=== PATIENT | female | born 2000 | race Caucasian/White ===

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

== ENCOUNTER 2019-09-17 09:27 | Emergency (ER) | payer OTHER ==
[2019-09-17] MEDS ORDERED: Ondansetron INJ* 2 MG/ML VIAL IV ONE ×2 (10:00→13:10)
[2019-09-17] MEDS ORDERED: NS 0.9% 1000 ML** 1,000 ML IV ONE (10:00)
[2019-09-17 10:25] LABS: ABS Eosinophils 0.1 10^3/ul (0-0.6); ABS Monocytes 0.4 10^3/ul (0-0.8); ABS Neutrophils 2.7 10^3/ul (1.5-7.7); Eosinophil % 2.2 %; Hematocrit 38 % (35-47); Lymphocyte % 23.9 %; Mean Corpuscular HGB Conc 34 g/dL (31-36); Mean Corpuscular Hemoglobin 28 pg (27-31); Mean Corpuscular Volume 82 fL (80-97); Mean Platelet Volume 8.3 fL (7.4-10.4); Nucleated Red Blood Cells % 0.1; Platelet Count 186 10^3/uL (150-450); Red Blood Count 4.67 10^6 /uL (3.70-4.87); Red Cell Distribution Width 14 % (10-15); White Blood Count 4.2 10^3/uL (3.5-10.8)
[2019-09-17 10:35] LABS: Activated Partial Thrombo Time 30.2 seconds (26.0-38.0); INR 1.01 (0.82-1.09)
[2019-09-17 10:57] LABS: Albumin 3.9 g/dL (3.2-5.2); Albumin/Globulin Ratio 1.4 (1-3); BUN/Creatinine Ratio 11.7 (8-20); Calcium 9.3 mg/dL (8.6-10.3); EGFR African American 92.8 (>60); EGFR Non-African American 76.7 (>60); Globulin 2.7 g/dL (2-4); Potassium 3.9 mmol/L (3.5-5.0); Total Bilirubin 0.5 mg/dL (0.2-1.0); Total Protein 6.6 g/dL (6.4-8.9)
[2019-09-17] MEDS ORDERED: Iohexol 300* (CONTRAST) 10 ML SDV IV ONE (12:00)
[2019-09-17] MEDS ORDERED: Ketorolac INJ* 30 MG/ML 1 ML VIAL IV ONE (13:10)
--- NOTE | 2019-09-17 13:35 | ED ---
Abdominal Pain/Female - HPI Summary HPI Summary: This patient is a 18-year-old female with no significant past medical history of presents to the ED with rectal bleeding 2 days. Patient is endorsing BRBPR x 2 days starting with a BM and 3 episodes (most previous one was last evening) of only BRB with no stool. Endorses mild abd cramping and nausea as well. Unsure if she ate anything abnormal. Denies vomiting. Denies any dizziness, HAWK, confusion, lightheadedness, UTI sxs or back pain. Denies any other sxs per patient. Takes no medications and has allergy to amoxicillin. Denies hx of IBD, IBS or other colitis. Denies hx of any GI upset/bleeding. No cough, congestion, fevers, sweats or chills. Denies known sick contacts or travel. Pt evaluated for GI bleed. Endorses BRBPR x 2 days (4 episodes total), last one was last evening. Denies having any BM this am. Endorses abd cramping. Pt appears well, non-diaphoretic and non-toxic in appearing. Lungs CTA, RRR. Diffuse tenderness on exam without guarding, distention or pinpoint tenderness. Negative CVA tenderness. BS throughout. Pt was given fluids and zofran with some improvement. Declined stool occult, AUSTEN. Denies any pain in rectum, hx of fissures or hemorrhoids. No clots per patient. Ct abd/pelvis obtained: Fatty infiltration of the liver. No evidence of colitis/diverticulitis or other inflammatory change. While pt was in the ED, there was no recurrent bleed or BM. Pt will f/u with GI. Discussed with the patient at length to return to the ED if symptoms persist or worsen. Will also return if she develops fever. She is stable and OK for DC at this time. - History of Current Complaint Chief Complaint: EDGIBleed Stated Complaint: BLOOD IN STOOL Time Seen by Provider: 09/17/19 09:35 Hx Obtained From: Patient Hx Last Menstrual Period: 06/06/17 ?: No Onset/Duration: Sudden Onset Timing: Days Severity Initially: Mild Severity Currently: Mild Pain Intensity: 4 Pain Scale Used: 0-10 Numeric Location: Diffuse, Other - bilateral lower quadrants Radiates: No Character: Cramping Aggravating Factor(s): Nothing Alleviating Factor(s): Nothing Associated Signs and Symptoms: Positive: Blood in Stool, Nausea. Negative: Diaphoresis, Fever, Cough, Chest Pain, Back Pain, Constipation, Urinary Symptoms , Decreased Appetite, Vaginal Bleeding, Vaginal Discharge, Vomiting, Diarrhea - Risk Factors Ectopic Risk Factor: Negative Ovarian Torsion Risk Factor: Negative Allergies/Adverse Reactions: Allergies Allergy/AdvReac Type Severity Reaction Status Date / Time amoxicillin Allergy Intermediate Hives Verified 09/17/19 09:33 Home Medications: Home Medications Norgestimate-Ethinyl Estradiol [Unique 0.25-0.035 mg Tablet] 1 tab PO DAILY [History Confirmed 09/17/19] Ondansetron ODT TAB* [Zofran 4 MG Odt TAB*] 4 mg PO Q6H PRN #12 tab.odt MDD 4 [Rx] PMH/Surg Hx/FS Hx/Imm Hx Previously Healthy: Yes Endocrine/Hematology History: Denies: Hx Diabetes Cardiovascular History: Denies: Hx Coronary Artery Disease, Hx Hypertension, Hx Pacemaker/ICD Musculoskeletal History: Denies: Hx Scoliosis, Other Musculoskeletal History Sensory History: Denies: Hx Cataracts, Hx Contacts or Glasses, Hx Hearing Aid Opthamlomology History: Denies: Hx Cataracts, Hx Contacts or Glasses Neurological History: Denies: Hx Headaches, Other Neuro Impairments/Disorders Psychiatric History: Denies: Hx Panic Disorder - Immunization History Hx Pertussis Vaccination: No Immunizations Up to Date: Yes Infectious Disease History: No Infectious Disease History: Denies: Traveled Outside the [place] in Last 30 Days - Family History Known Family History: Negative: Cardiac Disease, Hypertension, Diabetes - Social History Occupation: Unemployed Lives: With Family Alcohol Use: None Hx Substance Use: No Substance Use Type: Reports: None Hx Tobacco Use: No Smoking Status (MU): Never Smoked Tobacco Have You Smoked in the Last Year: No Review of Systems Negative: Fever, Chills, Fatigue, Skin Diaphoresis Negative: Dental Pain, Sore Throat Negative: Palpitations, Chest Pain Negative: Shortness Of Breath, Cough Positive: Abdominal Pain, Nausea. Negative: Vomiting, Diarrhea Genitourinary: Negative Positive: no symptoms reported, see HPI Negative: Arthralgia, Myalgia All Other Systems Reviewed And Are Negative: Yes Physical Exam Triage Information Reviewed: Yes Vital Signs On Initial Exam: Initial Vitals Temp Pulse Resp BP Pulse Ox 98.3 F 109 16 138/109 98 09/17/19 09:30 09/17/19 09:30 09/17/19 09:30 09/17/19 09:30 09/17/19 09:30 Vital Signs Reviewed: Yes Appearance: Positive: Well-Appearing, Well-Nourished Skin: Positive: Warm, Skin Color Reflects Adequate Perfusion Head/Face: Positive: Normal Head/Face Inspection Eyes: Positive: EOMI, MACEY, Conjunctiva Clear Neck: Positive: Supple, No Lymphadenopathy Respiratory/Lung Sounds: Positive: Clear to Auscultation, Breath Sounds Present Cardiovascular: Positive: RRR, Pulses are Symmetrical in both Upper and Lower Extremities. Negative: Tachycardia, Leg Edema Left, Leg Edema Right Musculoskeletal: Positive: Normal, Strength/ROM Intact Neurological: Positive: Facial Symmetry Psychiatric: Positive: Normal, Affect/Mood Appropriate AVPU Assessment: Alert Procedures - Sedation Patient Received Moderate/Deep Sedation with Procedure: No Diagnostics - Vital Signs Vital Signs Temp Pulse Resp BP Pulse Ox 09/17/19 12:05 54 122/65 99 09/17/19 12:00 59 99 09/17/19 11:40 49 106/62 100 09/17/19 11:05 68 117/64 100 09/17/19 11:04 74 99 09/17/19 10:35 82 127/82 97 09/17/19 10:06 79 99 09/17/19 10:05 82 116/86 100 09/17/19 09:30 98.3 F 109 16 138/109 98 - Laboratory Lab Results: Lab Results 09/17/19 09/17/19 09/17/19 Range/Units 10:15 10:15 10:15 WBC 4.2 (3.5-10.8) 10^3/uL RBC 4.67 (3.70-4.87) 10^6 /uL Hgb 13.0 (12.0-16.0) g/dL Hct 38 (35-47) % MCV 82 (80-97) fL MCH 28 (27-31) pg MCHC 34 (31-36) g/dL RDW 14 (10-15) % Plt Count 186 (150-450) 10^3/uL MPV 8.3 (7.4-10.4) fL Neut % (Auto) 63.9 % Lymph % (Auto) 23.9 % [place] % (Auto) 9.3 % Eos % (Auto) 2.2 % Baso % (Auto) 0.7 % Absolute Neuts (auto) 2.7 (1.5-7.7) 10^3/ul Absolute Lymphs (auto) 1.0 (1.0-4.8) 10^3/ul Absolute Monos (auto) 0.4 (0-0.8) 10^3/ul Absolute Eos (auto) 0.1 (0-0.6) 10^3/ul Absolute Basos (auto) 0.0 (0-0.2) 10^3/ul Absolute Nucleated RBC 0.0 10^3/ul Nucleated RBC % 0.1 INR (Anticoag Therapy) 1.01 (0.82-1.09) APTT 30.2 (26.0-38.0) seconds Sodium 138 (135-145) mmol/L Potassium 3.9 (3.5-5.0) mmol/L Chloride 108 (101-111) mmol/L Carbon Dioxide 25 (22-32) mmol/L Anion Gap 5 (2-11) mmol/L BUN 11 (6-24) mg/dL Creatinine 0.94 (0.51-0.95) mg/dL Est GFR ( Amer) 92.8 (>60) Est GFR (Non-Af Amer) 76.7 (>60) BUN/Creatinine Ratio 11.7 (8-20) Glucose 87 (70-100) mg/dL Calcium 9.3 (8.6-10.3) mg/dL Total Bilirubin 0.50 (0.2-1.0) mg/dL AST 16 (13-39) U/L ALT 12 (7-52) U/L Alkaline Phosphatase 46 (34-104) U/L Total Protein 6.6 (6.4-8.9) g/dL Albumin 3.9 (3.2-5.2) g/dL Globulin 2.7 (2-4) g/dL Albumin/Globulin Ratio 1.4 (1-3) Result Diagrams: 09/17/19 10:15 09/17/19 10:15 Lab Statement: Any lab studies that have been ordered have been reviewed, and results considered in the medical decision making process. Abdominal Pain Fem Course/Dx - Course Course Of Treatment: Pt evaluated for GI bleed. Endorses BRBPR x 2 days (4 episodes total), last one was last evening. Denies having any BM this am. Endorses abd cramping. Pt appears well, non-diaphoretic and non-toxic in appearing. Lungs CTA, RRR. Diffuse tenderness on exam without guarding, distention or pinpoint tenderness. Negative CVA tenderness. BS throughout. Pt was given fluids and zofran with some improvement. Declined stool occult, AUSTEN. Denies any pain in rectum, hx of fissures or hemorrhoids. No clots per patient. Ct abd/pelvis obtained: Fatty infiltration of the liver. No evidence of colitis/diverticulitis or other inflammatory change. While pt was in the ED, there was no recurrent bleed or BM. Pt will f/u with GI. Discussed with the patient at length to return to the ED if symptoms persist or worsen. Will also return if she develops fever. She is stable and OK for DC at this time. - Diagnoses Differential Diagnosis: Positive: Other - colitis, IBD, IBS Provider Diagnoses: Hematochezia Discharge ED - Sign-Out/Discharge Documenting (check all that apply): Patient Departure - Discharge Plan Condition: Stable Disposition: HOME Prescriptions: Ondansetron ODT TAB* [Zofran 4 MG Odt TAB*] 4 mg PO Q6H PRN #12 tab.odt MDD 4 PRN Reason: Nausea Patient Education Materials: Rectal Bleeding (ED) Referrals: Pina Culver MD [Medical Doctor] - Belkis Goetz MD [Primary Care Provider] - Additional Instructions: Please follow up with GI if symptoms persist If you have any worsening symptoms, return to the ED immediately If you develop fevers, return to the ED Take tylenol 650mg for any discomfort Zofran as needed for nausea - Billing Disposition and Condition Condition: STABLE Disposition: Home
[2019-09-17 13:58] VITALS: BP 110/57
== END 2019-09-17 13:57 | disposition home or self-care (01) ==
LOC: ED 09:27
DX: K92.1 Melena (principal); R11.0 Nausea; R10.9 Unspecified abdominal pain; Z88.0 Allergy status to penicillin; Z79.3 Long term (current) use of hormonal contraceptives
CPT/HCPCS: 36415; 74177; 80053; 85025; 85610; 85730; 96361; 96374; 96375; 99283; J2405; Q9967